=== PATIENT | female | born 1940 | race Caucasian/White ===

== ENCOUNTER 2022-05-01 02:01 | Observation (INO) | payer MEDICARE ==
--- NOTE | 2022-05-01 02:39 | ERPHSYRPT ---
- History of Present Illness Source: patient, family, EMS Exam Limitations: other (Very poor historian) Patient Subjective Stated Complaint: pt got up to bathroom and fell. Triage Nursing Assessment: pt brought in by ambulance. Pt alert and oriented x3, cooperative. Pt is very [place]. Pt got up to bathroom, denied any dizziness when getting up, but as she was sitting on toilet, began to feel dizzy. Pt was ambulating back to bed and fell. Pt denies hitting her head or taking any blood thinners. Pt denies any pain. Physician History: 82 yo wf brought by ambulance w cc of fall walking back from her bathroom after getting dizzy or lightheaded. Pt denies any pain and syncope, but her son states that she "passed out'. She denies headache/chest pain/dyspnea/focal weakness/cervical pain/T&L-spine pain/abdominal pain/hip pain/lower extremity pain/upper extremity pain. Pt states that she has a h/o dizziness. EMT's stated that pt did not want to come to the ER and actually refused transport, but she relented due to son's persistence. Occurred: just prior to arrival Reason for Fall: became dizzy Injuries/Pain Location: no injury Loss of Consciousness: other (Pt states no, but son states yes) Quality: other (No pain) Severity of Pain-Max: none Severity of Pain-Current: none Modifying Factors: Improves With: nothing Associated Symptoms (Fall): denies symptoms, dizziness, lightheadedness Allergies/Adverse Reactions: Sulfa (Sulfonamide Antibiotics) Allergy (Verified 05/01/22 02:17) Home Medications: Citalopram Hydrobromide [Celexa] 1 tab PO HS 05/01/22 [History] Hydrochlorothiazide 25 mg [hydroDIURIL 25 MG] 1 tab PO DAILY 05/01/22 [History] Levothyroxine Sodium 50 Mcg [Synthroid 50 Mcg] 1 tab PO DAILY 05/01/22 [History] Losartan Potassium 50 mg [Cozaar 50 MG] 1 tab PO DAILY 05/01/22 [History] Meloxicam 15 mg [Meloxicam 15 MG] 1 tab PO DAILY 05/01/22 [History] Pantoprazole Sodium 40 mg PO DAILY 05/01/22 [History] Simvastatin 20Mg [Zocor 20Mg] 1 tab PO HS 05/01/22 [History] Tolterodine Tartrate [Tolterodine Tartrate ER] 2 mg PO DAILY 05/01/22 [History] Hx Tetanus, Diphtheria Vaccination/Date Given: No Hx Influenza Vaccination/Date Given: Yes Hx Pneumococcal Vaccination/Date Given: Yes Immunizations Up to Date: No Travel Risk - International Travel Have you traveled outside of the country in past 3 weeks: No - Coronavirus Screening Are you exhibiting any of the following symptoms?: No Close contact with a COVID-19 positive Pt in past 14-21 Days: No - Vaccine Status Have you recieved a Covid-19 vaccination: Yes Certified Medical [facility]: [facility] - Vaccination Dates Date of 2cond Vaccination (if applicable): . - Review of Systems Constitutional: No Symptoms Eyes: No Symptoms Ears, Nose, & Throat: No Symptoms Respiratory: No Symptoms Cardiac: No Symptoms Abdominal/Gastrointestinal: No Symptoms Genitourinary Symptoms: No Symptoms Musculoskeletal: No Symptoms Skin: No Symptoms Neurological: No Symptoms, Dizziness Psychological: No Symptoms Endocrine: No Symptoms Hematologic/Lymphatic: No Symptoms Immunological/Allergic: No Symptoms - Past Medical History Pertinent Past Medical History: Yes Cardiac History: Hypertension Endocrine Medical History: Hypothyroidism Musculoskeletal History: Fractures GI Medical History: GERD Psycho-Social History: Depression Female Reproductive Disorders: Other Other Medical History: restless leg. bladder - Past Surgical History Past Surgical History: Yes Neuro Surgical History: No Pertinent History Cardiac: No Pertinent History Respiratory: No Pertinent History Gastrointestinal: No Pertinent History Genitourinary: No Pertinent History Musculoskeletal: Orthopedic Surgery Female Surgical History: Hysterectomy Other Surgical History: mastectomy - Social History Smoking Status: Former smoker Exposure to second hand smoke: Yes Drug Use: none Patient Lives Alone: No Significant Family History: no pertinent family hx - Nursing Vital Signs Nursing Vital Signs: Initial Vital Signs Temperature 98.0 F 05/01/22 02:04 Pulse Rate 75 05/01/22 02:04 Respiratory Rate 24 05/01/22 02:04 Blood Pressure 182/139 05/01/22 02:04 O2 Sat by Pulse Oximetry 96 05/01/22 02:04 Pain Scale Pain Intensity 0 Hypertensive - Faiza Coma Score Best Eye Response (Dana): (4) open spontaneously Best Verbal Response (Dana): (5) oriented Best Motor Response (Faiza): (6) obeys commands Dana Total: 15 - Physical Exam General Appearance: no apparent distress Head Injury: no evidence of injury Eye Exam: PERRL/EOMI, eyes nml inspection ENT Exam: airway nml, No evidence of ENT injury, No clear fluid (ears), No clear fluid (nose) Neck Exam: supple, trachea midline, other (C-spine NTTP) Respiratory/Chest Exam: normal breath sounds, No chest tenderness, No respiratory distress Cardiovascular Exam: normal heart sounds, regular rate/rhythm, normal peripheral pulses, No murmur Gastrointestinal Exam: soft, normal bowel sounds, No tenderness Back Exam: normal inspection, vertebral tenderness (No T or L-spine ttp) Extremity Exam: normal inspection, normal range of motion, capillary refill <3 sec, pelvis stable Peripheral Pulses: carotid (R): 2+, carotid (L): 2+ Neurologic Exam: alert, oriented x 3, cooperative, breaker hand II-XII nml as tested, normal mood/affect, sensation nml, No motor deficits, No sensory deficit Skin Exam: normal color, warm, dry, No rash SpO2 Interpretation: normal SpO2: 96 O2 Delivery: Room Air - Course Nursing assessment & vital signs reviewed: Yes EKG Interpreted by Me: RATE (NSR/Rate 74/Prolonged QTc/Incomplete RBBB/Poor Rwave progression) - Radiology Exams Chest X-ray Interpretation: Interpreted by me (CXR NAD) - CT Exams Head CT Interpretation: Tele-radiologist Report (No acute CVA/Possible 5.1x6.3 aneurism) Ordered Tests: Active Orders 24 hr Category Date Time Status EKG-ER Only STAT Care 05/01/22 02:27 Active CHEST 1 VIEW (PORTABLE) Stat Exams 05/01/22 02:27 Taken HEAD WITHOUT CONTRAST [CT] Stat Exams 05/01/22 03:33 Taken CBC W DIFF Stat Lab 05/01/22 02:45 Completed CMP Stat Lab 05/01/22 02:45 Completed CULTURE,URINE Stat Lab 05/01/22 02:51 Received PROTIME WITH INR Stat Lab 05/01/22 02:45 Completed PTT Stat Lab 05/01/22 02:45 Completed TROPONIN Q4H Lab 05/01/22 02:45 Completed TROPONIN Q4H Lab 05/01/22 06:30 Ordered TROPONIN Q4H Lab 05/01/22 10:30 Ordered UA W/RFX UR CULTURE Stat Lab 05/01/22 02:51 Completed Medication Summary Discontinued Medications Generic Name Dose Route Start Last Admin Trade Name Riana PRN Reason Stop Dose Admin Clonidine 0.2 mg 05/01/22 03:56 05/01/22 04:05 Clonidine Hcl 0.1 Mg Tablet PO 05/01/22 03:57 0.2 mg STAT ONE Administration Clonidine Confirm 05/01/22 04:05 Clonidine Hcl 0.1 Mg Tablet Administered 05/01/22 04:06 Dose 0.2 mg .ROUTE .STK-MED ONE Lab/Rad Data: Laboratory Result Diagrams 05/01/22 02:45 05/01/22 02:45 Laboratory Results 05/01/22 05/01/22 05/01/22 Range/Units 02:51 02:45 02:45 WBC (4.0-10.5) x10^3/uL RBC (4.1-5.4) x10^6/uL Hgb (12.0-16.0) g/dL Hct (35-47) % MCV (78-100) fL MCH (26-32) pg MCHC (32-36) g/dL RDW (11.5-14.0) % Plt Count (150-450) x10^3/uL MPV (7.5-11.0) fL Gran % (36.0-66.0) % Immature Gran % (Auto) (0.00-0.4) % Nucleat RBC Rel Count (0.00-0.1) % Eos # (Auto) (0-0.5) x10^3/uL Immature Gran # (Auto) (0.00-0.03) x10^3u/L Absolute Lymphs (auto) (1.0-4.6) x10^3/uL Absolute Monos (auto) (0.0-1.3) x10^3/uL Absolute Nucleated RBC (0.00-0.01) x10^3u/L Lymphocytes % (24.0-44.0) % Monocytes % (0.0-12.0) % Eosinophils % (0.00-5.0) % Basophils % (0.0-0.4) % Absolute Granulocytes (1.4-6.9) x10^3/uL Basophils # (0-0.4) x10^3/uL PT 11.4 (9.4-12.5) SECONDS INR 1.08 (0.8-3.0) APTT 24.8 L (25.1-36.5) SECONDS Sodium (137-145) mmol/L Potassium (3.5-5.1) mmol/L Chloride (98-107) mmol/L Carbon Dioxide (22-30) mmol/L Anion Gap (5-15) MEQ/L BUN (7-17) mg/dL Creatinine (0.52-1.04) mg/dL Estimated GFR ML/MIN Glucose (74-106) mg/dL Calcium (8.4-10.2) mg/dL Total Bilirubin (0.2-1.3) mg/dL AST (14-36) U/L ALT (0-35) U/L Alkaline Phosphatase (38-126) U/L Troponin I < 0.012 (0.000-0.034) ng/mL Serum Total Protein (6.3-8.2) g/dL Albumin (3.5-5.0) g/dL Urine Color Yellow (Yellow) Urine Appearance Cloudy A (Clear) Urine pH 6.0 (4.6-8.0) Ur Specific [place] 1.015 (1.005-1.030) Urine Protein Negative (Negative) Urine Ketones Negative (Negative) Urine Blood Negative (Negative) Urine Nitrite Positive A (Negative) Urine Bilirubin Negative (Negative) Urine Urobilinogen 0.2 (0.2) mg/dL Ur Leukocyte Esterase Negative (Negative) U Hyaline Cast (Auto) 0-2 (0-2) /LPF Urine Microscopic RBC 0-2 (0-5) /HPF Urine Microscopic WBC 0-2 (0-5) /HPF Ur Epithelial Cells Rare (None Seen) /HPF Urine Bacteria Many A (None Seen) /HPF Urine Culture Reflexed YES (NO) Urine Glucose Negative (Negative) mg/dL 05/01/22 05/01/22 Range/Units 02:45 02:45 WBC 8.9 (4.0-10.5) x10^3/uL RBC 4.31 (4.1-5.4) x10^6/uL Hgb 13.5 (12.0-16.0) g/dL Hct 40.4 (35-47) % MCV 93.7 (78-100) fL MCH 31.3 (26-32) pg MCHC 33.4 (32-36) g/dL RDW 12.7 (11.5-14.0) % Plt Count 245 (150-450) x10^3/uL MPV 9.9 (7.5-11.0) fL Gran % 58.5 (36.0-66.0) % Immature Gran % (Auto) 0.2 (0.00-0.4) % Nucleat RBC Rel Count 0.0 (0.00-0.1) % Eos # (Auto) 0.90 H (0-0.5) x10^3/uL Immature Gran # (Auto) 0.02 (0.00-0.03) x10^3u/L Absolute Lymphs (auto) 2.23 (1.0-4.6) x10^3/uL Absolute Monos (auto) 0.51 (0.0-1.3) x10^3/uL Absolute Nucleated RBC 0.00 (0.00-0.01) x10^3u/L Lymphocytes % 25.1 (24.0-44.0) % Monocytes % 5.7 (0.0-12.0) % Eosinophils % 10.1 H (0.00-5.0) % Basophils % 0.4 (0.0-0.4) % Absolute Granulocytes 5.20 (1.4-6.9) x10^3/uL Basophils # 0.04 (0-0.4) x10^3/uL PT (9.4-12.5) SECONDS INR (0.8-3.0) APTT (25.1-36.5) SECONDS Sodium 130 L (137-145) mmol/L Potassium 3.4 L (3.5-5.1) mmol/L Chloride 100 (98-107) mmol/L Carbon Dioxide 23 (22-30) mmol/L Anion Gap 10.8 (5-15) MEQ/L BUN 24 H (7-17) mg/dL Creatinine 1.22 H (0.52-1.04) mg/dL Estimated GFR 44.8 ML/MIN Glucose 113 H (74-106) mg/dL Calcium 9.0 (8.4-10.2) mg/dL Total Bilirubin 0.80 (0.2-1.3) mg/dL AST 22 (14-36) U/L ALT 18 (0-35) U/L Alkaline Phosphatase 107 (38-126) U/L Troponin I (0.000-0.034) ng/mL Serum Total Protein 6.2 L (6.3-8.2) g/dL Albumin 3.8 (3.5-5.0) g/dL Urine Color (Yellow) Urine Appearance (Clear) Urine pH (4.6-8.0) Ur Specific [place] (1.005-1.030) Urine Protein (Negative) Urine Ketones (Negative) Urine Blood (Negative) Urine Nitrite (Negative) Urine Bilirubin (Negative) Urine Urobilinogen (0.2) mg/dL Ur Leukocyte Esterase (Negative) U Hyaline Cast (Auto) (0-2) /LPF Urine Microscopic RBC (0-5) /HPF Urine Microscopic WBC (0-5) /HPF Ur Epithelial Cells (None Seen) /HPF Urine Bacteria (None Seen) /HPF Urine Culture Reflexed (NO) Urine Glucose (Negative) mg/dL - Progress Progress: improved Progress Note: 05/01/22 05:04 BP decreased w 0.2 po Clonidine Pt wo focal weakness, chest pain, any arrythmias or any musculoskeletal pain during stay. 05/01/22 05:27 CT head results reviewed and shared w pt/family. Pt states that she has a known brain aneurism and consulted w [facility] several years ago. Non-operative approach was agreed upon at that time. 05/01/22 05:34 All labs and imaging reviewed and results shared w pt Counseled pt/family regarding: lab results, diagnosis, need for follow-up, rad results - Departure Departure Disposition: Home Clinical Impression: Syncope and collapse, Hypertensive urgency, Brain aneurysm Condition: Stable Critical Care Time: No Referrals: DANYELLE STOLL DO [Primary Care Provider] - Follow up/PCP as directed Instructions: High Blood Pressure (DC), Preventing Falls in Older Adults Additional Instructions: Continue current medications Follow up with your family MD in 1-2 days Also, follow up with previous neurosurgeon about brain aneurism Return to ER as needed
[2022-05-01 02:48] LABS: Basophil (Absolute #) 0.04 x10^3/uL (0-0.4); Eosinophil % 10.1 % (0.00-5.0); Hematocrit 40.4 % (35-47); Hemoglobin 13.5 g/dL (12.0-16.0); Lymphocyte (Absolute #) 2.23 x10^3/uL (1.0-4.6); Lymphocytes % 25.1 % (24.0-44.0); Mean Cell Volume 93.7 fL (78-100); Mean Corpuscular Hemoglobin 31.3 pg (26-32); Mean Corpuscular Hgb Concent. 33.4 g/dL (32-36); Mean Platelet Volume 9.9 fL (7.5-11.0); Monocyte (Absolute #) 0.51 x10^3/uL (0.0-1.3); Monocytes % 5.7 % (0.0-12.0); Neutrophil % 58.5 % (36.0-66.0); Platelet Count 245 x10^3/uL (150-450); Red Blood Count 4.31 x10^6/uL (4.1-5.4); Red Cell Distribution Width 12.7 % (11.5-14.0); White Blood Count 8.9 x10^3/uL (4.0-10.5)
[2022-05-01 03:08] LABS: INR 1.08 (0.8-3.0); PROTIME 11.4 SECONDS (9.4-12.5); PTT 24.8 SECONDS (25.1-36.5)
[2022-05-01 03:12] LABS: Appearance Cloudy (Clear); Bacteria Many /HPF (None Seen); Bilirubin Negative (Negative); Blood Negative (Negative); Epithelial Cells Rare /HPF (None Seen); Glucose Negative (Negative); Hyaline Casts 0-2 /LPF (0-2); Ketones Negative (Negative); Leukocyte Esterase Negative (Negative); Nitrite Positive (Negative); Protein,Urine Dip Negative (Negative); RBC 0-2 /HPF (0-5); Specific Gravity 1.015 (1.005-1.030); Urobilinogen 0.2 mg/dL (0.2)
[2022-05-01 03:17] LABS: ALBUMIN 3.8 g/dL (3.5-5.0); ANION GAP 10.8 MEQ/L (5-15); BILIRUBIN,TOTAL 0.8 mg/dL (0.2-1.3); Creatinine 1 1.22 mg/dL (0.52-1.04); EST GLOMERULAR FILTRATION RATE 44.8 ML/MIN; Potassium 3.4 mmol/L (3.5-5.1); Total Protein 6.2 g/dL (6.3-8.2)
[2022-05-01 03:19] LABS: WBC 0-2 /HPF (0-5)
[2022-05-01 03:20] LABS: ADD URINE CULTURE? YES (NO)
[2022-05-01] MEDS ORDERED: CLONIDINE 0.1 MG TABLET PO ONE (03:56)
[2022-05-01] MEDS ORDERED: CLONIDINE 0.1 MG TABLET ONE (04:05)
[2022-05-01] MEDS ORDERED: Sodium Chloride 0.9% 500 ML 500 ML IV ONE ×3 (06:12→07:16)
--- NOTE | 2022-05-01 08:48 | XRAY ---
Indication: Lethargy. Status post fall. Comparison: August 18, 2021 Portable chest inflated and clear. Heart and mediastinal structures within normal limits. Stable focal eventration of the left and right hemidiaphragm. Bony thorax intact. Impression: Continued nonacute chest with chronic features.
--- NOTE | 2022-05-01 08:56 | XRAY ---
Indication: Syncope. Dizziness, weakness, and nausea. Status post fall. Multiple contiguous axial images obtained through the head without contrast. Comparison: None Age-appropriate global atrophy, moderate periventricular degenerative micro-ischemia bilaterally, tiny remote lacunar infarct left thalamus, and small remote infarct left posterior basal ganglia. Moderate scattered parasellar internal carotid artery calcifications. Left [place], probable anterior cerebral artery demonstrates a 5.1 x 6.3 mm aneurysm. No acute intracranial hemorrhage, abnormal extra-axial fluid collection, or mass effect. Fourth ventricle is midline without hydrocephalus. Bony calvarium intact. Visualized paranasal sinuses and mastoid air cells are clear. 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 2. No acute intracranial hemorrhage/abnormalities. 3. Atrophy and degenerative micro-ischemia within normal limits for patient's age. 4. 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 Comment: Preliminary interpretation made by C. No critical discrepancy.
[2022-05-01 09:03] LABS: INFLUENZA A NEGATIVE (NEGATIVE); INFLUENZA B NEGATIVE (NEGATIVE); RESPIRATORY SYNCTIAL VIRUS NEGATIVE (Negative); SARS-CoV-2 Xpert Express NEGATIVE (NEGATIVE)
--- NOTE | 2022-05-01 10:02 | XRAY ---
Indication: Aneurysm on same-day CT head without contrast exam. Lethargy. Syncope. Multiple contiguous axial images obtained through the head using 100 cc Isovue 370 contrast. Comparison: Taken earlier in the day. Partially calcified 10 x 5 x 8 mm saccular aneurysm seen at the junction of the left anterior cerebral and anterior communicating artery. Scattered calcifications seen of the remaining parasellar internal carotid arteries bilaterally without critical stenosis/obstruction. Posterior circulation demonstrates mildly dolichoectatic basilar artery without critical stenosis, obstruction, or AV malformation. Venous drainage/sinuses are unremarkable. Remaining whole brain negative for abnormal enhancing intra or extra-axial mass. Impression: CT head with contrast exam confirms small saccular aneurysm at junction of left anterior cerebral and anterior communicating artery. Remaining CT head without contrast exam is negative.
--- NOTE | 2022-05-01 10:09 | XRAY ---
Indication: Elevated d-dimer. Conventional contrast enhanced CTA chest performed using 100 cc Isovue 370 contrast. 2-D sagittal and coronal reformatted images obtained. Additional 3-D reformatted images obtained using separate workstation. Comparison: None Good opacification of the pulmonary arteries. No pulmonary embolus. Thoracic aorta is mildly arteriosclerotic without aneurysm/dissection. Normal widely patent branch right brachiocephalic and left common carotid arteries. Minimal calcification origin left subclavian artery without critical stenosis/obstruction. Heart is not enlarged. No pathologic mediastinal/hilar lymphadenopathy. Small hiatal hernia. Examination of the lung parenchyma demonstrates mild bilateral dependent atelectasis. Posterior left lung base demonstrates small fatty Bochdalek hernia. No suspicious pulmonary mass/nodule, infiltrate, effusion, or pneumothorax. Bony thorax intact. CTA abdomen/pelvis reported separately. Impression: 1. Negative pulmonary embolus. No acute cardiopulmonary abnormalities. 2. Mildly arteriosclerotic thoracic aorta without aneurysm/dissection. 3. Chronic findings including small hiatal hernia, small fatty left base Bochdalek hernia. 4. Remaining CTA chest with contrast exam is negative.
[2022-05-01] MEDS ORDERED: ROCEPHIN 1 Gm-D5w 50 ml Bag** 1 G/50 ML IVPB IV STA (10:52)
[2022-05-01] MEDS ORDERED: ROCEPHIN 1 Gm-D5w 50 ml Bag** 1 G/50 ML IVPB IV ONE (10:53)
--- NOTE | 2022-05-01 11:06 | XRAY ---
Indication: Hypotension, syncope, and weakness. Conventional contrast enhanced CTA abdomen and pelvis performed using 100 cc Isovue 370 contrast. 2-D sagittal and coronal reformatted images obtained. Additional 3-D reformatted images obtained using separate workstation. Comparison: None CTA chest reported separately. The abdominal aorta is mild/moderately arteriosclerotic. Minimal calcifications origin of celiac, superior mesenteric, and both main renal arteries without critical stenosis or obstruction. Inferior mesenteric artery widely patent. Infrarenal fusiform aneurysm measuring at least 3.3 x 3.2 cm in diameter and at least 4.2 cm in length. No free fluid or evidence for active hemorrhage. Iliac arteries demonstrate mild scattered arteriosclerotic calcifications without critical stenosis, dissection, or AV malformation. Noncontrasted stomach stomach and bowel loops appear nonobstructed with normal appendix. Mild diffuse scattered colonic fecal debris throughout. Stomach is moderately distended without gallstones or biliary distention. Previous hysterectomy. No free fluid/air. Both kidneys enhance with at least 4 right renal and 6 left renal cysts. Largest cyst is right midpole measuring 5.2 x 5.4 cm. No suspicious solid renal mass, hydronephrosis, or hydroureter. Remaining liver, pancreas, spleen, adrenal glands, kidneys, ureters, and bladder are unremarkable. No pathologic retroperitoneal lymphadenopathy. Osseous structures intact with right hip arthroplasty. Impression: 1. 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 2. Distended gallbladder without gallstones. Sonogram may yield further information if clinically warranted. 3. CT findings including mild diffuse fecal stasis, bilateral renal cysts, and chronic bony findings.
[2022-05-01] MEDS ORDERED: MILK OF MAGNESIA 30 ML PO PRN (11:58)
[2022-05-01] MEDS ORDERED: TYLENOL 325 MG PO PRN (11:58)
[2022-05-01] MEDS ORDERED: MAALOX ES 30 ML UNIT DOSE PO PRN (11:58)
[2022-05-01] MEDS ORDERED: Senokot-S Tablet PO PRN (11:58)
[2022-05-01] MEDS ORDERED: MEDICATION INTERVENTION MC SCH (14:45)
[2022-05-01 15:06] LABS: PREALBUMIN 35.01 mg/dL (17.6-36.0); TSH, 3RD Generation 1.03 mIU/L (0.47-4.68)
[2022-05-01] MEDS: MELOXICAM PO SCH (16:19)
[2022-05-01] MEDS: ECOTRIN 81 MG PO SCH (16:20)
[2022-05-01] MEDS: Cozaar 50 MG PO SCH (16:20)
[2022-05-01] MEDS: Protonix 40MG Tablet PO SCH (16:20)
[2022-05-01] MEDS: SYNTHROID 50 MCG PO SCH (16:20)
[2022-05-01] MEDS ORDERED: ZOCOR 20MG PO SCH (22:00)
[2022-05-01] MEDS ORDERED: REQUIP 2MG TAB PO SCH (22:00)
[2022-05-01] MEDS ORDERED: NON-FORMULARY ITEM (Citalopram Hydrobromide [Celexa] 40 MG Tablet) PO SCH (22:00)
[2022-05-01] MEDS ORDERED: ceLEXa 20 MG PO SCH (22:00)
[2022-05-02 05:52] LABS: Hematocrit 34.3 % (35-47); Hemoglobin 11.8 g/dL (12.0-16.0); Mean Cell Volume 92.7 fL (78-100); Mean Corpuscular Hemoglobin 31.9 pg (26-32); Mean Corpuscular Hgb Concent. 34.4 g/dL (32-36); Platelet Count 222 x10^3/uL (150-450); Red Cell Distribution Width 13.2 % (11.5-14.0); White Blood Count 9.9 x10^3/uL (4.0-10.5)
[2022-05-02 06:57] LABS: ANION GAP 8.6 MEQ/L (5-15); Calcium 8.1 mg/dL (8.4-10.2); Creatinine 1 1.08 mg/dL (0.52-1.04); EST GLOMERULAR FILTRATION RATE 51.6 ML/MIN; Potassium 3.5 mmol/L (3.5-5.1)
[2022-05-02 07:23] LABS: Risk Ratio 2.6
[2022-05-02] MEDS: ECOTRIN 81 MG PO SCH (09:04)
[2022-05-02] MEDS: MELOXICAM PO SCH (09:05)
[2022-05-02] MEDS: Cozaar 50 MG PO SCH (09:05)
[2022-05-02] MEDS: Protonix 40MG Tablet PO SCH (09:05)
[2022-05-02] MEDS: SYNTHROID 50 MCG PO SCH (09:05)
[2022-05-02] MEDS ORDERED: NON-FORMULARY ITEM (Meloxicam 15 Mg [Meloxicam 15 Mg] 15 MG Tablet) PO SCH (10:00)
[2022-05-02] MEDS ORDERED: NON-FORMULARY ITEM (Tolterodine Tartrate [Tolterodine Tartrate Er] 2 MG Cap.Er.24h) PO SCH (10:00)
[2022-05-02] MEDS ORDERED: ROCEPHIN 1 Gm-D5w 50 ml Bag** 1 G/50 ML IVPB IV SCH (10:00)
[2022-05-02] MEDS ORDERED: Ditropan XL 5 MG PO SCH (10:00)
[2022-05-02] MEDS ORDERED: BABY ASPIRIN 81 MG CHEW PO SCH (10:00)
[2022-05-02 16:07] VITALS: BP 139/88; PULSE 58; O2SAT 97
--- NOTE | 2022-05-02 17:33 | PCM.SSS ---
History of Present Illness - Chief Complaint Chief Complaint: UTI, Suncope, History of Present Illness: is a 82 year old female patient new to Dr Stoll presented to ER after a fall. Denies head trauma or any injury from the fall. 82 yo wf brought by ambulance w cc of fall walking back from her bathroom after getting dizzy or lightheaded. Pt denies any pain and syncope, but her son states that she "passed out'. She denies headache/chest pain/dyspnea/focal weakness/cervical pain or spine pain/abdominal pain/hip pain/lower extremity pain/upper extremity pain. Pt states that she has a h/o dizziness. EMT's stated that pt did not want to come to the ER and actually refused transport, but she relented due to son's persistence. Occurred: just prior to arrival Reason for Fall: became dizzy Injuries/Pain Location: no injury Loss of Consciousness: other (Pt states no, but son states yes) - Review of Systems Constitutional: No Symptoms Eyes: No Symptoms Ears, Nose, & Throat: No Symptoms Respiratory: No Symptoms Cardiac: No Symptoms Abdominal/Gastrointestinal: No Symptoms Genitourinary Symptoms: Frequency Musculoskeletal: No Symptoms Skin: No Symptoms Neurological: Dizziness Psychological: No Symptoms Endocrine: No Symptoms Hematologic/Lymphatic: No Symptoms Medications & Allergies Home Medications: Home Medication List Citalopram Hydrobromide [Celexa] 1 tab PO HS 05/01/22 [History Confirmed 05/01/22] Hydrochlorothiazide 25 mg [hydroDIURIL 25 MG] 1 tab PO DAILY 05/01/22 [History Confirmed 05/01/22] Levothyroxine Sodium 50 Mcg [Synthroid 50 Mcg] 1 tab PO DAILY 05/01/22 [Hi story Confirmed 05/01/22] Losartan Potassium 50 mg [Cozaar 50 MG] 1 tab PO DAILY 05/01/22 [History Confirmed 05/01/22] Meloxicam 15 mg [Meloxicam 15 MG] 1 tab PO DAILY 05/01/22 [History Confirmed 05/01/22] Pantoprazole Sodium 40 mg PO DAILY 05/01/22 [History Confirmed 05/01/22] Ropinirole 2Mg [Requip 2Mg Tab] 2 mg PO HS 05/01/22 [History Confirmed 05/01/22] Simvastatin 20Mg [Zocor 20Mg] 1 tab PO HS 05/01/22 [History Confirmed 05/01/22] Tolterodine Tartrate [Tolterodine Tartrate ER] 2 mg PO DAILY 05/01/22 [History Confirmed 05/01/22] Aspirin EC 81 mg [Ecotrin 81 mg] 81 mg PO DAILY tablet 05/02/22 [Rx] Cefuroxime Axetil 500 mg [Ceftin 500 mg] 500 mg PO BID 5 Days #10 tablet 05/02/22 [Rx] Allergies/Adverse Reactions: Allergies Allergy/AdvReac Type Severity Reaction Status Date / Time Sulfa (Sulfonamide Allergy Verified 05/01/22 02:17 Antibiotics) - Past Medical History Past Medical History: Yes Cardiac History: Hypertension Endocrine Medical History: Hypothyroidism Musculoskelatal History: Fractures GI Medical History: GERD Pyscho-Social History: Depression Reproductive Disorders: Other Comment: restless leg. bladder - Female History Are you now?: No - Past Surgical History Past Surgical History: Yes Neuro Surgical History: No Pertinent History Cardiac History: No Pertinent History Respiratory Surgery: No Pertinent History GI Surgical History: No Pertinent History Genitourinary Surgical Hx: No Pertinent History Musculskeletal Surgical Hx: Orthopedic Surgery Female Surgical History: Hysterectomy Other Surgical History: mastectomy right hip replacement - Social History Smoking Status: Former smoker How long have you smoked: 20 Exposure to second hand smoke: Yes Alcohol: None Drug Use: none Significant Family History: no pertinent family hx - Physical Exam Vital Signs: Vital Signs - 24 hr Temp Pulse Resp BP Pulse Ox 05/02/22 16:00 98.4 F 58 L 16 139/88 97 05/02/22 15:28 18 05/02/22 11:53 98.4 F 59 L 16 116/54 94 L 05/02/22 11:34 16 05/02/22 08:00 16 05/02/22 07:08 98.6 F 61 16 121/60 96 05/02/22 04:00 97.7 F 78 17 119/51 92 L 05/01/22 23:27 97.6 F 67 16 148/66 97 05/01/22 19:44 97.3 F 60 18 111/55 95 General Appearance: no apparent distress Neurologic Exam: alert, oriented x 3, cooperative, territory business manager II-XII nml as tested, normal mood/affect, nml cerebellar function, nml station & gait, sensation nml Eye Exam: eyes nml inspection Ears, Nose, Throat Exam: normal ENT inspection Neck Exam: normal inspection, non-tender Respiratory Exam: normal breath sounds Cardiovascular Exam: regular rate/rhythm, bradycardia (60) Gastrointestinal/Abdomen Exam: soft (nontender) Pelvic Exam: not done Rectal Exam: not done Back Exam: normal inspection Extremity Exam: normal inspection Skin Exam: normal color, warm, dry Results - Labs Lab/Micro Results: Lab Results-Last 24 Hours 05/02/22 05/02/22 05/02/22 Range/Units 04:35 04:35 04:35 WBC 9.9 (4.0-10.5) x10^3/uL RBC 3.70 L (4.1-5.4) x10^6/uL Hgb 11.8 L (12.0-16.0) g/dL Hct 34.3 L (35-47) % MCV 92.7 (78-100) fL MCH 31.9 (26-32) pg MCHC 34.4 (32-36) g/dL RDW 13.2 (11.5-14.0) % Plt Count 222 (150-450) x10^3/uL MPV 11.0 (7.5-11.0) fL Sodium 131 L (137-145) mmol/L Potassium 3.5 (3.5-5.1) mmol/L Chloride 103 (98-107) mmol/L Carbon Dioxide 23 (22-30) mmol/L Anion Gap 8.6 (5-15) MEQ/L BUN 23 H (7-17) mg/dL Creatinine 1.08 H (0.52-1.04) mg/dL Estimated GFR 51.6 ML/MIN Glucose 103 (74-106) mg/dL Calcium 8.1 L (8.4-10.2) mg/dL Triglycerides 87 (30-150) mg/dL Cholesterol 102 (50-200) mg/dL LDL Cholesterol 48 (30-100) mg/dL HDL Cholesterol 39 L (40-60) mg/dL Heart Disease Risk Ratio 2.6 Microbiology 05/01/22 02:51 Urine Culture - Preliminary Urine, Catheterized GRAM NEGATIVE ID AND SENSITIVITY PENDING - Radiology Impressions Radiology Exams & Impressions: Radiology Procedures Category Date Time Status CHEST 1 VIEW (PORTABLE) Stat Exams 05/01/22 02:27 Completed CTA ABD/PEL W AND/OR W/O CONTR [CT] Stat Exams 05/01/22 07:19 Completed CTA CHEST W AND/OR WO [CT] Stat Exams 05/01/22 07:18 Completed HEAD WITH CONTRAST [CT] Stat Exams 05/01/22 07:19 Completed HEAD WITHOUT CONTRAST [CT] Stat Exams 05/01/22 03:33 Completed - Other Procedures and Tests Respiratory Therapy 05/03/22 05:00 EKG ONCE 05/04/22 05:00 EKG ONCE Assessment/Plan (1) Dizziness Current Visit: Yes Status: Resolved Code(s): R42 - DIZZINESS AND GIDDINESS (2) Near syncope Current Visit: Yes Status: Resolved (3) Brain aneurysm Current Visit: Yes Status: Chronic Assessment & Plan: stable followed by for years (4) AAA (abdominal aortic aneurysm) without rupture Current Visit: Yes Status: Suspected Assessment & Plan: small 3cm-discussed with Educational Technology Coordinator Dr Valle ,not worrisome at this size,follow. Code(s): I71.40 - ABDOMINAL AORTIC ANEURYSM WITHOUT RUPTURE, UNSP (5) UTI (urinary tract infection) Current Visit: Yes Status: Acute Assessment & Plan: is on Rocephin , await final cult report growing Gram neg -Rx Ceftin 500mg bid x 5 days Code(s): N39.0 - URINARY TRACT INFECTION, SITE NOT SPECIFIED (6) Hypertensive urgency Current Visit: Yes Status: Resolved Assessment & Plan: patient will test B/P and pulse 3 x a day and will bring readings to appt. Code(s): I16.0 - HYPERTENSIVE URGENCY (7) Elevated d-dimer Current Visit: Yes Status: Chronic Assessment & Plan: continue ASA tx. Code(s): R79.89 - OTHER SPECIFIED ABNORMAL FINDINGS OF BLOOD CHEMISTRY Hospital Summary - Hospital Course Hospital Course: Patient states she had some dizziness and lost her footing and fell in the bathroom.Son states she "passed out". ER evaluation - CT Head -showed stable aneurysm brain (followed by and verified by ER doctor.ABD CT AAA 3 x 4 cm fusiform shape,gallstones. Patient Tele monitored during stay with heart rate upper 50s to mid 60s .EKG 1st deg AV block which was discussed with Educational Technology Coordinator Dr Valle who states no immediate tx needed ,will follow.B/P 200/100 treated in ER and with Losartan per Dr Hollins and B/P normalized . UA culture UTI treated on IV rocephin,culture growing Gneg bug. Will be discharged on Ceftin 500mg bidx 5 days-will review final report and sens tomorrow when available. Patient is anxious to go home and agrees to HH with PT.Patient will see me this coming Sunday in follow up and further workup will be ordered at that time. - Vitals & Intake/Output Vital Signs: Vital Signs Temperature 98.4 F 05/02/22 16:00 Pulse Rate 58 L 05/02/22 16:00 Respiratory Rate 16 05/02/22 16:00 Blood Pressure 139/88 05/02/22 16:00 O2 Sat by Pulse Oximetry 97 05/02/22 16:00 Intake & Output: Intake & Output 04/30/22 05/01/22 05/02/22 05/03/22 11:59 11:59 11:59 11:59 Intake Total 1020 340 Output Total 1100 400 Balance -80 -60 Weight 71.3 kg 67.8 kg - Lab Result Diagrams: 05/02/22 04:35 05/02/22 04:35 Lab Results-Last 24 Hrs: Lab Results-Last 24 Hours 05/02/22 05/02/22 05/02/22 Range/Units 04:35 04:35 04:35 WBC 9.9 (4.0-10.5) x10^3/uL RBC 3.70 L (4.1-5.4) x10^6/uL Hgb 11.8 L (12.0-16.0) g/dL Hct 34.3 L (35-47) % MCV 92.7 (78-100) fL MCH 31.9 (26-32) pg MCHC 34.4 (32-36) g/dL RDW 13.2 (11.5-14.0) % Plt Count 222 (150-450) x10^3/uL MPV 11.0 (7.5-11.0) fL Sodium 131 L (137-145) mmol/L Potassium 3.5 (3.5-5.1) mmol/L Chloride 103 (98-107) mmol/L Carbon Dioxide 23 (22-30) mmol/L Anion Gap 8.6 (5-15) MEQ/L BUN 23 H (7-17) mg/dL Creatinine 1.08 H (0.52-1.04) mg/dL Estimated GFR 51.6 ML/MIN Glucose 103 (74-106) mg/dL Calcium 8.1 L (8.4-10.2) mg/dL Triglycerides 87 (30-150) mg/dL Cholesterol 102 (50-200) mg/dL LDL Cholesterol 48 (30-100) mg/dL HDL Cholesterol 39 L (40-60) mg/dL Heart Disease Risk Ratio 2.6 Micro Results-Entire Visit: Microbiology 05/01/22 02:51 Urine Culture - Preliminary Urine, Catheterized GRAM NEGATIVE ID AND SENSITIVITY PENDING - Radiology Exams Ordered Rad Exams-Entire Visit: Radiology Procedures Category Date Time Status CHEST 1 VIEW (PORTABLE) Stat Exams 05/01/22 02:27 Completed CTA ABD/PEL W AND/OR W/O CONTR [CT] Stat Exams 05/01/22 07:19 Completed CTA CHEST W AND/OR WO [CT] Stat Exams 05/01/22 07:18 Completed HEAD WITH CONTRAST [CT] Stat Exams 05/01/22 07:19 Completed HEAD WITHOUT CONTRAST [CT] Stat Exams 05/01/22 03:33 Completed - Procedures and Test Procedures and Tests throughout Hospitalization: Therapy Orders & Screens 05/01/22 11:58 EKG [id number],QAMX3,PRN Comment: 05/01/22 14:24 EKG ONCE Comment: Diagnosis: Dizziness, fall, syncope, UTI 05/02/22 05:00 EKG ONCE Comment: Diagnosis: Dizziness, fall, syncope, UTI 05/03/22 05:00 EKG ONCE Comment: Diagnosis: Dizziness, fall, syncope, UTI 05/04/22 05:00 EKG ONCE Comment: Diagnosis: Dizziness, fall, syncope, UTI - Discharge Disposition: HOME HEALTH SERVICE Condition: Stable Prescriptions: New Cefuroxime Axetil 500 mg [Ceftin 500 mg] 500 mg PO BID 5 Days #10 tablet Aspirin EC 81 mg [Ecotrin 81 mg] 81 mg PO DAILY tablet Continue Tolterodine Tartrate [Tolterodine Tartrate ER] 2 mg PO DAILY Pantoprazole Sodium 40 mg PO DAILY Meloxicam 15 mg [Meloxicam 15 MG] 1 tab PO DAILY Losartan Potassium 50 mg [Cozaar 50 MG] 1 tab PO DAILY Levothyroxine Sodium 50 Mcg [Synthroid 50 Mcg] 1 tab PO DAILY Hydrochlorothiazide 25 mg [hydroDIURIL 25 MG] 1 tab PO DAILY Simvastatin 20Mg [Zocor 20Mg] 1 tab PO HS Citalopram Hydrobromide [Celexa] 1 tab PO HS Ropinirole 2Mg [Requip 2Mg Tab] 2 mg PO HS Discontinued Aspirin 81 gm Chew [Baby Aspirin 81 mg Chew] 81 mg DAILY Instructions: Urinary Tract Infection, Adult (DC) Additional Instructions: A CABLE BRAIDER WILL CALL YOU TOMORROW TO SET UP HOME HEALTH. DR STOLL WILL SET UP A CARDIOLOGY APPOINTMENT THROUGH HER OFFICE. Follow up with: DANYELLE STOLL DO [Primary Care Provider] - 05/08/22 3:15 pm
== END 2022-05-02 18:07 | disposition home health service (06) ==
LOC: ED 02:01 → MED SURG 11:51
PROVIDERS: ADMIT Family Medicine; ATTEND Family Medicine
DX: R42 Dizziness and giddiness (principal); R55 Syncope and collapse; W18.30XA Fall on same level, unspecified, initial encounter; I67.1 Cerebral aneurysm, nonruptured; I71.40 Abdominal aortic aneurysm, without rupture, unspecified; N39.0 Urinary tract infection, site not specified; I16.0 Hypertensive urgency; I10 Essential (primary) hypertension; R79.89 Other specified abnormal findings of blood chemistry; Z79.899 Other long term (current) drug therapy; Z20.828 Contact with and (suspected) exposure to other viral communicable diseases
CPT/HCPCS: 0241U; 36000; 36415; 70450; 70460; 71045; 71275; 74174; 80048; 80053; 80061; 81001; 82947; 83721; 84134; 84443; 84484; 85025; 85027; 85379; 85610; 85730; 87086; 93005; 96374; 99285; 93268; J0696; A9270-GY; G0378